=== PATIENT | female | born 1995 | race Caucasian/White ===

== ENCOUNTER 2024-07-05 14:39 | Emergency (ER) | payer MEDICAID, SELFPAY ==
[2024-07-05 14:43] VITALS: BP 116/69; PULSE 88; RESP 18; TEMP 37; O2SAT 97; BMI 26.9
--- NOTE | 2024-07-05 15:51 | ED_ITS ---
HPI - Abdominal Pain General Chief Complaint: Abdominal Pain Stated Complaint: abd pain lightheadness, hard time walking at work Time Seen by Provider: 07/05/24 14:42 History of Present Illness HPI narrative: This 28-year-old female comes in reporting crampy lower abdominal pain related to her menses. She states that she was getting lightheaded at work so she comes in here. She reports that she has some symptoms like this related to her menses in the past. She arrives here with normal vital signs. She states that she does seem to have some increased urinary frequency. She does not think she is . Related Data Home Medications ?Medication ?Instructions ?Recorded ?Confirmed clonidine 0.1 mg/24 hr weekly 1 patch transdermal QWEEK 07/05/24 07/05/24 transdermal patch clonidine HCl 0.1 mg tablet 0.1 mg PO QHS 07/05/24 07/05/24 dextroamphetamine-amphetamine 10 10 mg PO BID 07/05/24 07/05/24 mg tablet (Adderall) hydroxyzine pamoate 50 mg capsule 50 mg PO BID 07/05/24 07/05/24 olanzapine 2.5 mg tablet 2.5 mg PO QHS 07/05/24 07/05/24 Allergies Allergy/AdvReac Type Severity Reaction Status Date / Time gabapentin Allergy Intermediate Verified 07/05/24 14:49 lamotrigine [From Lamictal] Allergy Intermediate Verified 07/05/24 14:49 quetiapine [From Seroquel] Allergy Intermediate Verified 07/05/24 14:49 risperidone Allergy Intermediate Verified 07/05/24 14:49 Review of Systems Status of ROS Reports: 10 or more systems reviewed and unremarkable except as noted in History and below Narrative Constitutional: No fevers, no weight gain or loss. Eyes: No discharge. No vision changes. HENT: No congestion, no sore throat, no ear pain. Cardiovascular: No chest pain, no palpitations. Respiratory: No shortness of breath, no wheezes, no cough. Gastrointestinal: No vomiting, no diarrhea. Lower abdominal pain that is crampy related to menses. Genitourinary: No dysuria, no hematuria. Musculoskeletal: Normal range of motion. Skin: No rashes, no pruritis. Neurological: No dizziness, weakness, sensory change, speech change. Endo/Heme/Allergies: No bruising or bleeding. No polydipsia. Pysch: no suicidality, no anxiety, no insomnia. All other systems reviewed and are negative. PFSH PFS Social History Smoking Status: Never smoker How often do you have a drink containing alcohol: monthly or less How many standard drinks containing alcohol do you have on a typical day: 1 or 2 How often do you have six or more drinks on one occasion: Never AUDIT-C Alcohol total score: 1 Non-prescribed substance use: marijuana (any form) service: No Exam Narrative: Exam Narrative: Constitutional: Well-developed, well-nourished, no acute distress. HEENT: Normocephalic, atraumatic. Neck: Normal range of motion. Nontender. Supple. Heart: Regular. No murmurs. Normal rate. Intact distal pulses. Lungs: Clear to auscultation. No chest discomfort. No wheezes, rhonchi, or rales. Abdomen: Normal bowel sounds. Mild tenderness in the lower abdomen. No rebound tenderness. Genitalia: Deferred. Back: No midline tenderness. Normal range of motion. Extremities: Normal range of motion. No injury. Skin: Intact. No rash. Warm. No erythema or pallor. Neurologic: No altered sensation. No weakness. Alert and oriented. Psychiatric: No suicidality. No anxiety or depression. No insomnia. Nursing notes and vitals signs are reviewed. Const: Vital Signs, click to edit/add: Vital Signs - 24 hr 07/05/24 14:43 Temperature 98.6 F Pulse Rate [Right Pulse Oximeter] 88 Respiratory Rate 18 Blood Pressure [Ri ght Upper Arm] 116/69 Pulse Oximetry 97 Oxygen Delivery Me thod Room Air Course Vital Signs Vital signs: Initial Vital Signs Temperature 98.6 F 07/05/24 14:43 Temperature Source Temporal Artery Scan 07/05/24 14:43 Pulse Rate 88 07/05/24 14:43 Pulse Rhythm Regular 07/05/24 14:43 Pulse Strength 3+ Normal 07/05/24 14:43 Respiratory Rate 18 07/05/24 14:43 Blood Pressure 116/69 07/05/24 14:43 Blood Pressure Mean 84 07/05/24 14:43 Blood Pressure Position Sitting 07/05/24 14:43 Pulse Oximetry 97 07/05/24 14:43 Oxygen Delivery Method Room Air 07/05/24 14:43 Vital Signs Temperature 98.6 F 07/05/24 14:43 Pulse Rate 88 07/05/24 14:43 Respiratory Rate 18 07/05/24 14:43 Blood Pressure 116/69 07/05/24 14:43 Pulse Oximetry 97 07/05/24 14:43 Oxygen Delivery Method Room Air 07/05/24 14:43 Temperature 98.6 F 07/05/24 14:43 Pulse Rate 88 07/05/24 14:43 Respiratory Rate 18 07/05/24 14:43 Blood Pressure 116/69 07/05/24 14:43 Pulse Oximetry 97 07/05/24 14:43 Oxygen Delivery Method Room Air 07/05/24 14:43 Medications Administered Medications: Discontinued Medications Generic Name Dose Route Start Last Admin Trade Name Radha PRN Reason Stop Dose Admin Ketorolac Tromethamine 10 mg 07/05/24 15:53 07/05/24 16:01 Ketorolac 10 Mg Tablet PO 07/05/24 15:54 10 mg ONCE ONE Administration MDM - Abdominal Pain MDM Narrative Medical decision making narrative: This patient comes in because of some lightheadedness episodes that occurred prior to arrival. She did not have loss of consciousness. She is currently menstruating and has associated crampy abdominal pain. She arrives here with normal vital signs and is not reporting any lightheadedness currently. She was able to get up to the restroom without any symptoms. Urinalysis is negative for and infection. I did discuss other lab and imaging options with the patient but seeing that her exam is rather reassuring and vital signs are okay she is satisfied that she is feeling better. I did provide a return to work note. Lab Data Labs: Lab Results 07/05/24 Range/Units 15:25 Urine Color Yellow (Yellow) Urine Appearance Clear (Clear) Urine pH 7.5 (5.0-8.5) Ur Specific [place] 1.015 (1.000-1.030) Urine Protein Negative (Negative) Urine Glucose (UA) Negative (Negative) Urine Ketones Negative (Negative) Urine Blood Trace-intact A (Negative) Urine Nitrite Negative (Negative) Urine Bilirubin Negative (Negative) Urine Urobilinogen 0.2 (0.2-1.0) Ur Leukocyte Esterase Negative (Negative) Urine RBC 0-2 (0-2) Urine WBC 0-2 (0-5) Ur Squamous Epith Cells Moderate A (None-Few) Urine Bacteria None (None) Urine HCG, Qual Negative (Negative) Discharge Plan Discharge Clinical Impression: Episodic lightheadedness Patient Disposition: Home, Self-Care Condition: Improved Additional Instructions: Take plenty of fluids orally and increase diet as tolerated. Use cnbd-sye-[id number] medicines as needed and directed. Follow up with MD return if worsening. Prescriptions: No Action dextroamphetamine-amphetamine [Adderall] 10 mg tablet 10 mg PO BID Rx Instructions: administer doses at least 4-6 hours apart olanzapine 2.5 mg tablet 2.5 mg PO QHS hydroxyzine pamoate 50 mg capsule 50 mg PO BID clonidine 0.1 mg/24 hr patch weekly 1 patch transdermal QWEEK clonidine HCl 0.1 mg tablet 0.1 mg PO QHS Follow Up/Referrals: Provider,Not a Local [Primary Care Provider] - Stand Alone Forms: [employer] Info Instructions
[2024-07-05 16:00] LABS: Appearance Urine Clear (Clear); Bilirubin Urine Negative (Negative); Blood Urine Trace-intact (Negative); Color Urine Yellow (Yellow); Glucose Urine Negative (Negative); Ketones Urine Negative (Negative); Leukocyte Esterase Urine Negative (Negative); Nitrite Urine Negative (Negative); Protein Urine Negative (Negative); Specific Gravity Urine 1.015 (1.000-1.030); Urobilinogen Urine 0.2 (0.2-1.0); pH Urine 7.5 (5.0-8.5)
[2024-07-05] MEDS: KETOROLAC 10 MG TABLET PO (16:01)
[2024-07-05 16:03] LABS: Ur HCG Qualitative* Negative (Negative)
[2024-07-05 16:09] LABS: RBC Urine 0-2 (0-2); Squamous Epithelial Cell Urine Moderate (None-Few); WBC Urine 0-2 (0-5)
--- OUTSIDE RECORDS SUMMARY | 2024-07-05 16:28 | XMS_ITS | Clinical Summary ---
Author Organization [facility] Address [address] [place] [address] Care Team Providers Care Property Handler Name Role Phone Yoselin Francisco RD Unavailable Kehinde Kearns MD Unavailable [phone] [facility] Primary Care Provide r Allergies Active Allergy Reactions Criticality Noted Date Comments Aspartame Headache 01/18/2024 Beef-Derived Products GI Disturbance 01/18/2024 Brassica Oleracea GI Disturbance 01/18/2024 Ambia-Containing Products GI Disturbance High 020 Gabapentin Hives 10/07/2021 Lamotrigine Hives 04/05/2017 Molds & Smuts GI Disturbance 06/30/2021 Quetiapine Hives,Shortness Of Breath High 01/30/2017 Risperidone Hives 04/05/2017 Seasonal Allergies 06/16/2020 Medications Medication Sig Dispensed Refills Start Date End Date Status amphetamine-dextr oamphetamine (ADDERALL) 10 MG tablet Take 10 mg by mouth daily Active amphetamine-dextr oamphetamine (ADDERALL) 5 MG tablet Take 5 mg by mouth daily Active vortioxetine (TRINTELLIX) 5 MG tablet Take 1 tablet (5 mg) by mouth 2 times daily 60 tablet 01/19/2024 Active hydrOXYzine HCl (ATARAX) 50 MG tablet Take 0.5-1 tablets (25-50 mg) by mouth 3 times daily as needed for anxiety 20 tablet 01/19/2024 Active cloNIDine (CATAPRES) 0.1 MG tablet Take 0.1 mg by mouth at bedtime. Active desvenlafaxine (PRISTIQ) 25 MG 24 hr tablet Take 1 tablet (25 mg) by mouth daily for 14 days, THEN 2 tablets (50 mg) daily for 14 days. 42 tablet 06/28/2024 07/26/2024 Active OLANZapine (ZYPREXA) 5 MG tablet Take 0.5-1 tablets (2.5-5 mg) by mouth 2 times daily as needed (instrusive thoughts). 30 tablet 06/28/2024 Active desvenlafaxine (PRISTIQ) 50 MG 24 hr tablet Take 1 tablet (50 mg) by mouth daily 30 tablet 06/19/2023 06/28/2024 Discontinued(D iscontinued by another Health Care Provider (No AVS)) amphetamine-dextr oamphetamine (ADDERALL) 10 MG tablet Take 10 mg by mouth daily 06/28/2024 Discontinued(D uplicate Therapy (No AVS / No eCancel)) amphetamine-dextr oamphetamine (ADDERALL) 5 MG tablet Take 5 mg by mouth daily 06/28/2024 Discontinued(D uplicate Therapy (No AVS / No eCancel)) Active Problems Problem Noted Date Diagnosed Date Generalized anxiety disorder 06/28/2024 Suicidal ideation 01/18/2024 Current severe episode of ma anna depressive disorder without psychotic features without prior episode 01/18/2024 Autism 07/02/2023 Depression with suicidal ideation 06/18/2023 Anxiety 06/18/2023 Posttraumatic stress disorder 06/18/2023 ADHD (attention deficit hyperactivity disorder) 05/29/2023 Suicidal thoughts 09/19/2021 Severe recurrent major depre ssion without psychotic features 09/19/2021 Indication for care in labor or delivery 020 Encounter for triage in patient 020 depression 05/16/2016 Dayami-Danlos syndrome Overview: Hypermobility type Fibromyalgia Resolved Problems Problem Noted Date Diagnosed Date Resolved Date High-risk , third trimester 06/21/2020 10/18/2020 Encounter for triage in patient 04/21/2020 06/21/2020 Ankle joint pain 05/23/2012 07/23/2012 Knee pain 05/23/2012 07/23/2012 Encounters Date Type Department Care Team Description 06/29/2024 Telephone [facility] Services - Behavioral Service Line [address] [place] [address] Jennifer Bach 06/28/2024 4:47 PM CDT - 06/28/2024 9:35 PM CDT Emergency [facility] Emergency Dept [address] [place] [address] Gareth Campos MD Depression with suicidal ideation; Moderate episode of recurrent major depressive disorder (H); Current severe episode of major depressive disorder without psychotic features without prior episode (H) Discharge Disposition: Home or Self Care 06/28/2024 Travel from Last 3 Months Immunizations Name Administration Dates Next Due HIB (PRP-T) 03/18/1997, 6,04/30/1996,1995 HepB, Unspecified 06/30/1996,04/30/1996,02/24/19 96 Hepatitis A Vac Ped/Adol-3 Dose 03/15/2009,06/03 Historical DTP/aP 03/18/2001, 7,06/30/1996,1995,02/25/1996 Hpv, Unspecified 03/27/2011 Influenza (H1N1) 11/26/2009 Influenza Vaccine >6 months,quad, PF 06/21/2020 MMR 03/18/2001,03/18/1997 Meningococcal,unspecified 03/27/2011 Poliovirus, inactivated (IPV) 03/18/2001 ,03/18/1997,06/30/1996,1995,02/25/1996 TD,PF 7+ (Tenivac) 05/28/2019 TDAP Vaccine (Adacel) 07/16/2020 Tdap (Adult) Unspecified Formulation 06/03/2008 Varicella 01/31/2000 Family History * Patient is adopted Relation Status Comments Father Other Mother Other Social History Tobacco Use Types Packs/Day Years Used Date Smoking Tobacco: Former Vaping Device Smokeless Tobacco: Never Tobacco Cessation:Counseling Given: Not Answered Comments:quit when found out Alcohol Use Standard Drinks/Week Comments No 0 (1 standard drink = 0.6 oz pur e alcohol) PHQ-2 Answer Date Recorded PHQ-2 Score 5 07/02/2023 [place] Depression Scale Answer Date Recorded [place] Depression Score 9 09/07/2020 Last EPDS Self Harm Result Not on file 09/07 Adolescent Education Answer Date Record ed Getting School Help Needed Not on file 06/29 Sex and Gender Information Value Date Recorded Sex Assigned at Not on file Gender Identity Not on file Sexual Orientation Not on file Last Filed Vital Signs Vital Sign Reading Time Taken Comments Blood Pressure 124/47 06/28/2024 5:12 PM CDT Pulse 96 06/28/2024 5:12 PM CDT Temperature 36.6 ??C (97.8 ??F) 06/28/2024 4:49 PM CD T Respiratory Rate 16 06/28/2024 5:12 PM CDT Oxygen Saturation 96% 06/28/2024 5:12 PM CDT Inhaled Oxygen Concentration - - Weight 76.2 kg (168 lb) 06/28/2024 4:49 PM CDT Height 175.3 cm (5' 9) 06/28/2024 4:49 PM CDT Body Mass Index 24.81 06/28/2024 4:49 PM CDT Plan of Treatment Health Maintenance Due Date Last Done Comments ADVANCE CARE PLANNING 1995 ANNUAL REVIEW OF HM ORDERS 1995 DEPRESSION ACTION PLAN 1995 YEARLY PREVENTIVE VISIT 1995 HPV IMMUNIZATION (2 - 3-dose series) 04/24/2011 03/27/2011 HEPATITIS C SCREENING 12/19/2013 PAP 05/28/2022 05/28/2019, 05/28/2019 PHQ-9 12/31/2023 07/02/2023, 12/10/2020, 10/18/2020 COVID-19 Vaccine ( season) 2024 04/06/2021, 03/09/2021 INFLUENZA VACCINE (#1) 2024 06/21/2020, 2009 DTAP/TDAP/TD IMMUNIZATION (9 - Td or Tdap) 07/16/2030 07/16/2020, 05/28/2019, 05/28/2019, Additional history exists HEPATITIS B IMMUNIZATION Completed 996, 04/30/1996, 02/25/1996 MENINGITIS IMMUNIZATION Aged Out 03/27/20 11, 03/27/2011, 03/27/2011 No longer eligible based on patient's age to complete this topic HIV SCREENING Completed 03/22/2020 Pneumococcal Vaccine: Pediatrics (0 to 5 Years) and At-Risk Patients (6 to 64 Years) Aged Out No longer eligible based on patient's age to complete this topic RSV MONOCLONAL ANTIBODY Aged Out No l onger eligible based on patient's age to complete this topic Procedures Procedure Name Priority Date/Time Associated Diagnosis Comments ABSTRACT HIV Routine 03/22/2020 ABSTRACT PAP (HIM EXTERNAL RESULT) Routine 05/28/2019 from Last 3 Months or Most Recently Relevant to Health Maintenance Results * ABSTRACT HIV (03/22/2020) HIV 1&2 EXT Non-Reacti ve Non-Reacti ve [facility] Blood specimen (specimen) 03/22/2020 Narrative [facility] - 03/22/2020 LAB RESULT [facility] Provider Outside LAB - HIM EXTERNAL R ESULT [facility] [address] [place] [address], [facility] * ABSTRACT PAP-NO CHARGE (05/28/2019) PAP-ABSTRACT See Scanned Document [facility] 05/28/2019 Narrative [facility] - 05/28/2019 RESULTS FOUND IN CARE EVERYWHERE [facility] Provider Outside LAB - HIM EXTERNAL R ESULT [facility] [address] [place] [address], [place] from Last 3 Months or Most Recently Relevant to Health Maintenance Advance Directives For more information, please contact: [phone] * Full Code (Latest Code Status on File) Date Activated Date Inactivated Comments 09/07/2020 10:07 AM 09/08/2020 6:06 PM All basic a nd advanced life-sustaining interventions are performed as appropriate Question Answer Comments Code status determined by: Discussion with patie nt/ legal decision maker * Full Code Date Activated Date Inactivated Comments 05/16/2016 12:11 PM 05/17/2016 10:56 PM Care Teams Property Handler Relationship Specialty Start Date End Date [address] [place] [address] PCP - General 06/28/[address] [place] [address] Building Services Supervisor Dietitian, Registered 07/29/20 Kehinde Kearns MD [address] [place] [address] [address] [place], [place] [address] Family Medicine 06/20/23 Frances Simmons Therapist 06/18/23 Fidel Barton Therapist 06/28/24 Dajuan Dallas Psychiatrist 06/28/24
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
--- OUTSIDE RECORDS SUMMARY | 2024-07-05 16:29 | XMS_ITS | Encounter Summary ---
Author Organization [facility] Address [address] [place] [address] Care Team Providers Care Library Services Coordinator Name Role Phone Yoselin Francisco RD Unavailable Nanette Kearns DO Primary Care Provider [phone] Kehinde Kearns MD Unavailable [phone] [facility] Primary Care Provide r Encounter Details Date Type Department Care Team (Late st Contact Info) Description 06/19/2023 Telephone [facility] Services - Behavioral Service Line [address] [place] [address] Brandi Cortes Social History Tobacco Use Types Packs/Day Years Used Date Smoking Tobacco: Former Vaping Device Smokeless Tobacco: Never Comments:quit when found out Alcohol Use Standard Drinks/Week Comments No 0 (1 standard drink = 0.6 oz pur e alcohol) PHQ-2 Answer Date Recorded PHQ-2 Score 3 10/18/2020 [place] Depression Scale Answer Date Recorded [place] Depression Score 9 09/07/2020 Last EPDS Self Harm Result Not on file 09/07 Sex and Gender Information Value Date Recorded Sex Assigned at Not on file Gender Identity Not on file Sexual Orientation Not on file COVID-19 Exposure Response Date Recorded In the last 10 days, have yo u been in contact with someone who was confirmed or suspected to have Coronavirus/COVID-19? 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 documented as of this encounter Care Teams Library Services Coordinator Relationship Specialty Start Date End Date Nanette Kearns DO [address] [place] [address] PCP - General Family Practice 06/19/23 06/19/[address] [place] [address] PCP - General 06/28/[address] [place], [place] [address] Order Management Specialist Dietitian, Registered 07/29/20 Kehinde Kearns MD [address] [address] [place] [address] Family Medicine 06/20/23 Frances Simmons Therapist 06/18/23 Fidel Barton Therapist 06/28/24 Dajuan Dallas Psychiatrist 06/28/24 documented as of this encounter
--- OUTSIDE RECORDS SUMMARY | 2024-07-05 16:29 | XMS_ITS | Encounter Summary ---
Author Organization [facility] Address [address] [place] [address] Care Team Providers Care Supervisor Instant Potato Processing Name Role Phone Yoselin Francisco RD Unavailable Kehinde Kearns MD Unavailable [phone] [facility] Primary Care Provide r Encounter Details Date Type Department Care Team (Late st Contact Info) Description 06/29/2024 Telephone [facility] Services - Behavioral Service Line [address] [place] [address] Jennifer Bach Social History Tobacco Use Types Packs/Day Years Used Date Smoking Tobacco: Former Vaping Device Smokeless Tobacco: Never Comments:quit when found out Alcohol Use Standard Drinks/Week Comments No 0 (1 standard drink = 0.6 oz pur e alcohol) PHQ-2 Answer Date Recorded PHQ-2 Score 5 07/02/2023 [place] Depression Scale Answer Date Recorded [place] Depression Score 9 09/07/2020 Last EPDS Self Harm Result Not on file 09/07 Adolescent Education Answer Date Record ed Getting School Help Needed Not on file 06/29 Sex and Gender Information Value Date Recorded Sex Assigned at Not on file Gender Identity Not on file Sexual Orientation Not on file documented as of this encounter Miscellaneous Notes * Telephone Encounter - Jennifer Bach - 06/29/2024 11:16 AM CDTSummary: follow up call LVM for patient regarding follow up, left Em[facility] number if they would like additional assistance. No further follow-up is needed. documented in this encounter Plan of Treatment Not on file documented as of this encounter Visit Diagnoses Not on filedocumented in this encounter Additional Health Concerns Assessment Noted Time PHQ-9 Depression Total Score: 023 2:20 PM CDT documented as of this encounter Care Teams Supervisor Instant Potato Processing Relationship Specialty Start Date End Date [address] [place] [address] PCP - General 06/28/[address] [place], [place] [id number] [facility] Agent Dietitian, Registered 07/29/20 Kehinde Kearns MD [address] [facility] [address] [place], [place] [address] Family Medicine 06/20/23 Frances Simmons Therapist 06/18/23 Fidel Barton Therapist 06/28/24 Dajuan Dallas Psychiatrist 06/28/24 documented as of this encounter
--- OUTSIDE RECORDS SUMMARY | 2024-07-05 16:29 | XMS_ITS | Clinical Summary ---
Author Organization [employer] [facility] Address [place], [place] [address] Care Team Providers Care Hedis Review Nurse Name Role Phone Martina Ureña [facility] Primary Care Prov ider Jules Egan Ac Unavailable [phone] Allergies Active Allergy Reactions Criticality Noted Date Comments Aspartame Headache Unknown 01/18/2024 Beef Derived (Bovine) Nausea Only 01/18/2024 Broccoli Nausea Only Unknown 01/18/2024 [place] GI Upset High 11/29/2018 [place] Containing Products GI Upset,Nausea Only High 11/29/2018 Gabapentin Mental Status Change,*Unknown - Follow up needed,Hives High 05/10/2017 Patient experienced suicidal ideations Gluten Other - Describe In Comment Field Low 10/14/2018 Fibromyalgia flare-up Lamotrigine Hives High 02/26/2017 Mold Nausea Only,GI Upset Unknown 06/30/2021 Unlisted Allergen (Include Detail In Comments) *Unknown Unknown 04/19/2020 Seasonal and mold allergies--sneezing and watery eyes Quetiapine Hives,Shortness Of Breath,Respiratory Distress High 01/30/2017 Risperidone Hives High 02/26/2017 Medications Medication Sig Dispensed Refills Start Date End Date Status methylphenidate HCl 36 mg Extended-Release tablet 03/15/2021 Active clonazePAM (KLONOPIN) 1 mg tablet Take 1 mg by mouth at bedtime. Active cloNIDine HCL (CATAPRES) 0.1 mg tablet Take 0.1 mg by mouth once daily. 04/15/2024 Active desvenlafaxine succinate (PRISTIQ) 50 mg Extended-Release tablet Take 50 mg by mouth once daily. 06/19/2023 Active dextroamphetamine-amp hetamine (ADDERALL) 10 mg tablet Take 10 mg by mouth once daily. Active dextroamphetamine-amp hetamine (ADDERALL) 5 mg tablet Take 5 mg by mouth once daily. Active hydrOXYzine HCL (ATARAX) 50 mg tablet Take 50 mg by mouth 2 times daily if needed. 01/19/2024 Active testosterone (ANDROGEL) 20.25 mg/1.25 gram (1.62 %) glpm transdermal gel 01/11/2024 Acti ve vortioxetine (TRINTELLIX) 10 mg tablet Take 10 mg by mouth once daily. Active homeopathic drugs ([facility] NATURAL PRODUCT OPHT) Take as instructed .. Active dexAMETHasone 4 mg tabletIndications:Cer vical radiculopathy Take 1 Tablet (4 mg) by mouth two times daily with meals. 10 Tablet 05/05/2024 Active Active Problems Problem Noted Date Diagnosed Date Neck pain 01/21/2024 Current severe episode of ma anna depressive disorder without psychotic features without prior episode 01/18/2024 Gender dysphoria 2023 Autistic disorder 07/02/2023 Anxiety 06/18/2023 Depression with suicidal ideation 06/18/2023 PTSD (post-traumatic stress disorder) 06/18/2023 ADHD (attention deficit hyperactivity disorder) 05/29/2023 Severe episode of recurrent major depressive disorder, without psychotic features 09/19/2021 Suicidal ideations 09/19/2021 Attention deficit hyperactiv ity disorder (ADHD), predominantly inattentive type 01/19/2021 Costochondritis 07/07/2020 [facility] Supervision of high-risk 04/16/20 20 Overview (04/19/2020): [facility] CONSULTATION ON 04/19/2020 REASON FOR CONSULT: L2 with management of medications TODAY'S APPOINTMENT: Genetics Consultation & Genetic Counseling PRIMARY DIAGNOSIS: 24 y.o. 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 No follow up Fibromyalgia--all over body pain, concentrated in neck, shoulders, back and migraines. Dx 2018, primary care provider manages PTSD-from childhood AHDH--dx in 2015, was on Adderoll until Anxiety/Depression Migraines Uses [id number] 10 puffs per day--stopped at 10 weeks LAST GROWTH: L2 scheduled on 05/21/2020 04/01/20 CL 3.5 cm Placenta Previa 03/22/2020 12w6d REFERRING PHYSICIAN/PHONE/LAST UPDATE: Dr Sasha Renae [phone] Primary MD approves scheduling of recommended ultrasounds/testing: Yes SPECIALISTS/CONSULTS: Include: Specialty MD Clinic Name Phone# [place] and ADD TO TREATMENT TEAM Family Practice Margarita Carrington [place] 01/15/2020 CARE COORDINATION: GENETICS: declined PROCEDURES: PERTINENT LABS: Labs reviewed? Yes Normal? Yes PERTINENT MEDS: , , , , Magnesium, Vitamin D, PNV Preferred delivery location: [facility] PLAN OF CARE: Supervision of normal first 03/09/2020 Overview (03/10/2020): 24 y.o. Concerns this Spotting Bleeding: Spotting 3-4 weeks ago, light, after intercourse. Blood type unknown. 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 Designated pharmacy: [facility] Prescribing physician: Suellen Flores CNP. Diagnosis: ION Martinez .................... 07/11/2018 10:21 AM Fibromyalgia 07/03/2018 Hypokalemia 01/16/2017 Hypermobile joints 01/06/2017 Bruising 01/06/2017 Hereditary disease in family possibly affecting fetus Vaginal bleeding in , second trimester Resolved Problems Problem Noted Date Diagnosed Date Resolved Date Gastroparesis 05/08/2016 10/15/2018 Overview (01/06/2017): EGD. fasted 16 hours, but still food in stomach. Lifetime stomach with bloating and couldn't swallow (visceral responses). black stool. stool with hard and diarrhea. glutton allergy 08/2017. Attention deficit 01/24/2013 01/06/2017 Encounters Date Type Department Care Team Description 06/17/2024 10:00 AM CDT Procedure Only [facility] [address] [facility] [address] [place] [address] Jules Egan L Ac Acupuncture 06/17/2024 Travel 06/03/2024 9:30 AM CDT Procedure Only [facility] [address] [facility] [address] [place] [address] Jules Egan L Ac Acupuncture 06/03/2024 Travel 05/14/2024 10:54 PM CDT - 05/14/2024 11:39 PM CDT Emergency [facility] [address] [facility] [place] [address] Yassine Rincon DO Contusion of right hand, initial encounter (Primary Dx) Discharge Disposition: Home Self Care 05/14/2024 11:00 AM CDT Procedure Only [facility] [address] [facility] [address] [place] [address] Jules Egan L Ac Acupuncture 05/14/2024 Travel 05/07/2024 1:00 PM CDT Office Visit [facility] [address] [facility] [address] [place] [address] Jules Egan L Ac Acupuncture 05/07/2024 Travel 05/05/2024 8:04 PM CDT - 05/05/2024 8:16 PM CDT Emergency [facility] [address] [place] [address] Kiran Paul PA Cervical radiculopathy (Primary Dx) Discharge Disposition: Home Self Care from Last 3 Months Immunizations Name Administration Dates Next Due COVID-19 vaccine (Moderna 100mcg/0.5mL) PF, MDV 04/06/2021,03/09/2021 DTaP 03/18/2001, 7,06/30/1996,04/30,02/25/1996 Hepatitis A (Peds) 03/15/2009,06/03/2008 Hepatitis B (Peds) 06/30/1996,04/30/1996, 996 Hib Conjugate, Unspecified 03/18/1997,,04/30/1996,02/24 Human Papilloma Virus Vaccine 03/27/2011 Inactivated Polio Vaccine 03/18/2001,08/1997,06/30/1996,04/30,02/25/1996 Influenza A (H1N1), Inactiva barby (Age >=3 Years) 11/26/2009 Influenza, IIV4 06/21/2020 MMR 03/18/2001,03/18/1997 Meningococcal Vaccine 03/27/2011 Polio Virus, Unspecified 03/18/1997,06/09,04/30/1996,02/24 Td (Age >=7 Years) 05/28/2019 Tdap 07/16/2020,06/03/2008 Varicella Vaccine 01/31/2000 Family History * Patient is adopted Medical History Relation Name Comments Other Mother met mother once Relation Name Status Comments Father Other Mother Alive Sister half biological Alive Social History Tobacco Use Types Packs/Day Years Used Date Smoking Tobacco: Never Smokeless Tobacco: Former Tobacco Cessation:Counseling Given: Yes Comments:ECigs- quitting on own Alcohol Use Standard Drinks/Week Comments Not Currently 0 (1 standard drink = 0.6 oz pur e alcohol) Rarely- not with PHQ-2 Answer Date Recorded PHQ-2 TOTAL SCORE 1 03/22/2020 Social Connections Answer Date Recorded Frequency of Communication with Friends and Fami ly Not on file 10/06/2021 Financial Resource Strain Answer Date R ecorded Difficulty of Paying Living Expenses Not on file 10/06/2021 Difficulty of Paying Living Expenses Not on file 10/06/2021 Sex and Gender Information Value Date Recorded Sex Assigned at Not on file Gender Identity Not on file Sexual Orientation Not on file Obstetrics History Para Term AB IAB SAB Ectopic Multiple Livin g Live Births 3 2 2 0 Date Outcome GA Total Labor Labor/2nd/3rd Weight Sex Type Anes PTL Alisa A1 A5 Name Clin 07/2012 SAB 11w 0d Comments:16 years old, no medical care 2017 SAB 5w0 d Last Filed Vital Signs Vital Sign Reading Time Taken Comments Blood Pressure 116/80 05/14/2024 10:24 PM CDT Pulse 90 05/14/2024 10:24 PM CDT Temperature 36.4 ??C (97.5 ??F) 05/14/2024 10:24 PM C DT Respiratory Rate 18 05/14/2024 10:24 PM CDT Oxygen Saturation 97% 05/14/2024 10:24 PM CDT Inhaled Oxygen Concentration - - Weight 76.2 kg (168 lb) 05/14/2024 10:24 PM CDT Height 175.3 cm (5' 9) 05/14/2024 10:24 PM CDT Body Mass Index 24.81 05/14/2024 10:24 PM CDT Plan of Treatment Health Maintenance Due Date Last Done Comments BMI (ht and wt on same day) for age 18+ 03/22/2021 03/22/2020, 05/28/2019, 12/30/2018, Additional history exists Depression screening for age 12+ 03/22/2021 03/22/2020, 12/30/2018, 11/28/2018, Additional history exists Pap test for age 21-65 05/28/2022 05/28/2019 COVID-19 vaccine series (3 - 2024- season) 2024 04/06/2021, 03/09/2021 Influenza for age 9-49 06/08/2024 06/21/2020, 2009 Tetanus booster 07/16/2030 07/16/2020, 0810/2018, 06/03/2008 HIV for age 15-65 Completed 03/22/2020, 05/28/2019 Hepatitis C screening for age 18-79 Completed 03/22/2020, 05/28/2019 Tdap Completed 07/16/2020, 06/03/2008 Pneumococcal series for age 6-64 Aged Out No longer eligible based on patient's age to complete this topic Procedures Procedure Name Priority Date/Time Associated Diagnosis Comments ACUPUNCTURE PLAN OF CARE Routine 05/16/2024 1:26 PM CDT Other chronic pain Chronic neck pain XR HAND 3 VIEWS RIGHT STAT 05/14/2024 10:38 PM CDT ANTI HIV 1/2 Routine 03/22/2020 4:13 PM CDT Supervision of normal first , antepartum ANTI HCV Routine 03/22/2020 4:13 PM CDT Supervision of normal first , antepartum CONSTRUCTION ADMINISTRATOR THIN PREP PAP SCREEN IMAGED Routine 05/28/2019 10:39 AM CDT Cervical cancer screening from Last 3 Months or Most Recently Relevant to Health Maintenance Results * XR HAND 3 VIEWS RIGHT (05/14/2024 10:38 PM CDT) Anatomical Region Laterality Modality HANDS, HAND R Digital Radiogra phy 05/14/2024 11:2 5 PM CDT Narrative 05/14/2024 11:25 PM CDT For Patients: ??As a result of the Century Cures Act, medical imaging exams and procedure reports are released immediately into your electronic medical record. ??You may view this report before your referring provider. ??If you have questions, please contact your health care provider. Indication: Pain. Technique: Right hand 3 views. Comparison: None. Findings: Bones: Alignment is normal. No fractures or bone lesions. ?? Joint spaces: Unremarkable. ?? Soft tissues: Unremarkable. ?? Impression: Unremarkable right hand. Dictated by Walter Brennan MD @ 05/14/2024 11:25:07 PM (Electronically Signed) Procedure Note Walter Brennan MD - 05/14/2024 For Patients: As a result of the Cures Act, medical imagingexams and procedure reports are released immediately into your electronicmedical record. You may view this report before your referring provider.If you have questions, please contact your health care provider. Indication: Pain. Technique: Right hand 3 views. Comparison: None. Findings: Bones: Alignment is normal. No fractures or bone lesions. Joint spaces: Unremarkable. Soft tissues: Unremarkable. Impression: Unremarkable right hand. Dictated by Walter Brennan MD @ 05/14/2024 11:25:07 PM (Electronically Signed) Stf Ed Triage GENERAL IMAGING * ANTI HCV (03/22/2020 4:13 PM CDT) HEPATITIS C ANTIBODY Non-React sawyer Non-React sawyer 03/22/2020 8:39 PM CDT [facility] Comment:Antibodies to HCV no t detected; does not exclude the possibility of exposure to HCV. Blood BLOOD SPECIMEN / Unknown Venipuncture / Unknown 03/22/2020 4:13 PM CDT 03/22/2020 4:14 PM CDT Sasha Renae DO SEND OUTS [facility] [address] [place] [address], * ANTI HIV 1/2 (03/22/2020 4:13 PM CDT) HIV-1/HIV-2 ANTIBODY Non-Reacti ve Non-Reacti ve 03/22/2020 8:37 PM CDT [facility] Comment:HIV-1 p24 and HIV-1/ HIV-2 Ab not detected. Blood BLOOD SPECIMEN / Unknown Venipuncture / Unknown 03/22/2020 4:13 PM CDT 03/22/2020 4:14 PM CDT Sasha Phong Oc DO SEND OUTS [facility] [address] [place] [address], [place] * CONSTRUCTION ADMINISTRATOR THIN PREP PAP SCREEN IMAGED (05/28/2019 10:39 AM CDT) Case Report Gynecologic Cytology Report ? Case: [id number] ? Authorizing Provider: ??Margarita Carrington, Collected: ? 05/28/2019 1039 ? DO ? Ordering Location: ? [facility] ?? Received: ?05/28/2019 1118 ? [facility] ? First Screen: ?Natalie Gao ? Specimen: ?CONSTRUCTION ADMINISTRATOR ThinPrep Vial Screening, Cervical ? 06/06/2019 2:03 PM CDT [facility] INTERPRETATION/ RESULT NEGATIVE FOR INTRAEPITHELIAL LESION OR MALIGNANCY (NIL) (none) 06/06/2019 2:03 PM CDT [facility] NISM(S) Fungal organisms morphologically consistent with Leticia species Shift in kvng suggestive of bacterial vaginosis 06/06/2019 2:03 PM CDT [facility] SPECIMEN ADEQUACY Satisfactory for evaluation Endocervical component present 06/06/2019 2:03 PM CDT [facility] HPV REQUEST HPV if ASCUS 06/06/2019 2:03 PM CDT [facility] Date of LMP 04/30/2019 06/06/2019 2:03 PM CDT [facility] Last Pap Date n/a 06/06/2019 2:03 PM CDT [facility] Last Pap Result First Pap/Unknown 2:03 PM CDT [facility] Abnormal Pap or Jackson Bx in last 5 years No 06/06/2019 2:03 PM CDT [facility] Menstrual Status Irregular Periods 06/06/2019 2:03 PM CDT [facility] Jackson Bx Done Today No 06/06/2019 2:03 PM CDT [facility] Additional Information None given 06/06/2019 2:03 PM CDT [facility] Automated Review Successful 06/06/2019 2:03 PM CDT [facility] Comment:Specimen processed s uccessfully by automated habitat conservation planner device, ThinPrep Imaging System, [employer] Note The pap test is a screening technique, not a diagnostic procedure. ??It is used primarily to screen for squamous cancers and precursor lesions. ??Published studies have shown that it is subject to both false negative and false positive results. ??The pap test should not be used as the sole means to diagnose or exclude pre-malignant and malignant lesions. Cytology is screened and interpreted at [facility] - [address], [place] [address] and [facility] - [address]; [place] [address] and [facility] - [address]; [place] [address] and [facility] [address]; [place] [address] 06/06/2019 2:03 PM CDT [facility] Other (Cervical) Non-Blood / Unknown 05/28/2019 10:39 AM CDT 05/28/2019 11:18 AM CDT Margarita Carrington DO PATHOLOGY/CY [facility] [address] [place] [address], from Last 3 Months or Most Recently Relevant to Health Maintenance Care Teams Hedis Review Nurse Relationship Specialty Start Date End Date Medicine, Martina [facility] [address] [facility] [place] [address] PCP - General Nurse Practitioner - Family 05/05/24 Jules Egan L Ac [address] [facility] [address] [place] [address] Supervisor Accounts Receivable 06/17/24
--- OUTSIDE RECORDS SUMMARY | 2024-07-05 16:29 | XMS_ITS | Encounter Summary ---
Author Organization [place] Address [address] [place] [address] Care Team Providers Care Radioisotope Production Operator Name Role Phone Yoselin Francisco RD Unavailable Kehinde Kearns MD Unavailable [phone] [facility] Primary Care Provide r Encounter Details Date Type Department Care Team (Late st Contact Info) Description 07/16/2023 [facility] [address] [place] [address] [facility] Social History Tobacco Use Types Packs/Day Years Used Date Smoking Tobacco: Former Vaping Device Smokeless Tobacco: Never Comments:quit when found out Alcohol Use Standard Drinks/Week Comments No 0 (1 standard drink = 0.6 oz pur e alcohol) PHQ-2 Answer Date Recorded PHQ-2 Score 5 07/02/2023 [place] Depression Scale Answer Date Recorded [place] Depression Score 9 09/07/2020 Last EPDS Self [...] suspected to have Coronavirus/COVID-19? No / Unsure 07/02/2023 2:04 PM CDT documented as of this encounter Plan of Treatment Not on file documented as of this encounter Visit Diagnoses Not on filedocumented in this encounter Additional Health Concerns Assessment Noted Time PHQ-9 Depression Total Score: 23 07/02/2 023 2:20 PM CDT documented as of this encounter Care Teams Radioisotope Production Operator Relationship Specialty Start Date End Date [address] [place], [place] [address] PCP - General 06/28/[address] [place], [place] [address] Utility Bill Complaints Investigator Dietitian, Registered 07/29/20 Kehinde Kearns MD [address] [address] [place] [address] Family Medicine 06/20/23 Frances Simmons Therapist 06/18/23 Fidel Barton Therapist 06/28/24 Dajuan Dallas Psychiatrist 06/28/24 documented as of this encounter
--- OUTSIDE RECORDS SUMMARY | 2024-07-05 16:29 | XMS_ITS | Encounter Summary ---
Author Organization [place] Address [address] [place] [address]. [place] [address] Care Team Providers Care Quarter Backer Name Role Phone Yoselin Francisco RD Unavailable Nanette Kearns DO Primary Care Provider [phone] Kehinde Kearns MD Unavailable [phone] [facility] Primary Care Provide r Encounter Details Date Type Department Care Team (Late st Contact Info) Description 06/19/2023 Telephone [facility] [address] [place] [address] Nanette Kearns, [address] [place] [address] Social History Tobacco Use Types Packs/Day Years Used Date Smoking Tobacco: Former Vaping Device Smokeless Tobacco: Never Comments:quit when found out Alcohol Use Standard Drinks/Week Comments No 0 (1 standard drink = 0.6 oz pur e alcohol) PHQ-2 Answer Date Recorded PHQ-2 Score 3 10/18/2020 [place] Depression Scale Answer Date Recorded [place] Depression Score 9 09/07/2020 Last EPDS Self [...] Assessment Noted Time PHQ-9 Depression Total Score: 022 7:03 AM CLAY ARTIST documented as of this encounter Care Teams Quarter Backer Relationship Specialty Start Date End Date Nanette Kearns DO [address] [place] [address] PCP - General Family Practice 06/19/23 06/19/[address] [place], [place] [address] PCP - General 06/28/[address] [place] [address] Rigger Supervisor Dietitian, Registered 07/29/20 Kehinde Kearns MD [address] [address] [place] [address] Family Medicine 06/20/23 Frances Simmons Therapist 06/18/23 Fidel Barton Therapist 06/28/24 Dajuan [place] Psychiatrist 06/28/24 documented as of this encounter
--- OUTSIDE RECORDS SUMMARY | 2024-07-05 16:29 | XMS_ITS | Referral Summary ---
Author Organization [facility] Address [address] [place] [id number] Care Team Providers Care Jingle Writer Name Role Phone Yoselin Francisco RD Unavailable Kehinde Kearns MD Unavailable [phone] [facility] Primary Care Provide r Encounters Date Type Department Care Team Description 06/29/2024 Telephone [facility] Services - Behavioral Service Line [address] [place] [address] Jennifer Bach 06/28/2024 Travel 06/28/2024 4:47 PM CDT - 06/28/2024 9:35 PM CDT Emergency [facility] Emergency Dept [address] [place] [id number] Gareth Campos MD Depression with suicidal ideation; Moderate episode of recurrent major depressive disorder (H); Current severe episode of major depressive disorder without psychotic features without prior episode (H) Discharge Disposition: Home or Self Care from Last 3 Months Allergies Active Allergy Reactions Criticality Noted Date Comments Aspartame Headache 01/18/2024 Beef-Derived Products GI Disturbance 01/18/2024 Brassica Oleracea GI Disturbance 01/18/2024 [place]-Containing Products GI Disturbance High 020 Gabapentin Hives [...] pain 05/23/2012 07/23/2012 Knee pain 05/23/2012 07/23/2012 Immunizations Name Administration Dates Next Due HIB (PRP-T) 03/18/1997, 6,04/30/1996,1995 HepB, Unspecified 06/30/1996,04/30/1996,02/24/19 96 Hepatitis A Vac Ped/Adol-3 Dose 03/15/2009,06/03 Historical DTP/aP 03/18/2001, 7,06/30/1996,1995,02/25/1996 Hpv, Unspecified 03/27/2011 Influenza (H1N1) 11/26/2009 Influenza Vaccine >6 months,quad, PF 06/21/2020 MMR 03/18/2001,03/18/1997 Meningococcal,unspecified 03/27/2011 Poliovirus, inactivated (IPV) 03/18/2001 ,03/18/1997,06/30/1996,1995,02/25/1996 [facility] 7+ [facility] 05/28/2019 TDAP Vaccine (Adacel) 07/16/2020 Tdap (Adult) Unspecified Formulation 06/03/2008 Varicella 01/31/2000 Social History Tobacco Use Types Packs/Day Years Used Date Smoking Tobacco: Former Vaping Device Smokeless Tobacco: Never Tobacco Cessation:Counseling Given: Not Answered Comments:quit when found out Alcohol Use Standard Drinks/Week Comments No 0 (1 standard drink = 0.6 oz pur e alcohol) PHQ-2 Answer Date Recorded PHQ-2 Score 5 07/02/2023 [place] Depression Scale Answer Date Recorded [place] Depression Score 9 09/07/2020 Last EPDS Self [...] 06/28/2024 4:49 PM CDT Plan of Treatment Not on file Procedures Procedure Name Priority Date/Time Associated Diagnosis Comments ABSTRACT HIV Routine 03/22/2020 ABSTRACT PAP (HIM EXTERNAL RESULT) Routine 05/28/2019 from Last 3 Months or Most Recently Relevant to Health Maintenance Results * ABSTRACT HIV (03/22/2020) Pathologist [facility] HIV 1&2 EXT Non-Reacti ve Non-Reacti ve [facility] Blood specimen (specimen) 03/22/2020 Narrative [facility] - 03/22/2020 LAB RESULT [facility] Provider Outside LAB - HIM EXTERNAL R ESULT [facility] [address] [place] [address], [place] * ABSTRACT PAP-NO CHARGE (05/28/2019) PAP-ABSTRACT See Scanned Document [facility] 05/28/2019 Narrative [facility] - 05/28/2019 RESULTS FOUND IN CARE EVERY[facility] Provider Outside LAB - HIM EXTERNAL R ESULT [facility] [address] [place] [address], [place] from Last 3 Months or Most Recently Relevant to Health Maintenance Advance Directives For more information, please contact: [phone] * Full Code (Latest Code Status on File) Date Activated Date Inactivated Comments 09/07/2020 10:07 AM 09/08/2020 6:06 PM All basic a nd advanced life-sustaining interventions are performed as appropriate Question Answer Comments Code status determined by: Discussion with patie nt/ legal decision maker * Full Code Date Activated Date Inactivated Comments 05/16/2016 12:11 PM 05/17/2016 10:56 PM Care Teams Jingle Writer Relationship Specialty Start Date End Date [facility] [address] [place] [address] PCP - General 06/28/[address] [place] [address] Manager Strategic Development Dietitian, Registered 07/29/20 Kehinde Kearns MD [address] [place] [address] [address] [place] [address] Family Medicine 06/20/23 Frances Simmons Therapist 06/18/23 Fidel Barton Therapist 06/28/24 Dajuan Dallas Psychiatrist 06/28/24
--- OUTSIDE RECORDS SUMMARY | 2024-07-05 16:29 | XMS_ITS | Encounter Summary ---
Author Organization [facility] Address [address] [place] [address]. [place] [address] Care Team Providers Care Wire Coiler Name Role Phone Yoselin Francisco RD Unavailable Kehinde Kearns MD Unavailable [phone] [facility] Provide r Reason for Referral * Mental Health Outpatient (Routine: Next available opening) - Pending Review Specialty Diagnoses / Procedures Referred By Contac t Referred To Contact Diagnoses Current severe episode of major depressive disorder without psychotic features without prior episode (H) Yeimy Cerda APRN RACEBOOK WRITER [address] [facility] [place] [address] Referral ID Status Reason Start Date Expiration Date V isits Requested Visits Authorized [id number] Pending Review 06/28/2024 06/28/2025 1 1 Question Answer Services: Interventional Psychiatry Evaluate and Treat Difficult to Treat Depression Seeking ECT? Per Specialty Provider Scheduling Instructions: [a]list games [facility] will call you to coordinate your care as prescribed by your provider. If you don't hear from a business process representative within 2 business days, please call [phone]. Only select yes if the patient has already been scheduled and requires a referral for insurance. If yes is selected, the referral will NOT route to scheduling for outreach. No Additional Information: Treatment resistent depression vs PMDD Comments Please be aware that coverage of these services is subject to the terms and limitations of your health insurance plan. Call member services at your health plan with any benefit or coverage questions. [employer] will call you to coordinate your care as prescribed by your provider. If you don't hear from a business process representative within 2 business days, please call [phone]. Reason for Visit * Reason Comments Suicidal Encounter Details Date Type Department Care Team (Late st Contact Info) Description 06/28/2024 4:47 PM CDT - 06/28/2024 9:35 PM CDT Emergency [facility] Emergency Dept [address] [place] [address] Gareth Campos MD [address] [place] [address] Depression with suicidal ideation; Moderate episode of recurrent major depressive disorder (H); Current severe episode of major depressive disorder without psychotic features without prior episode (H) Discharge Disposition: Home or Self Care Social History Tobacco Use Types Packs/Day Years Used Date Smoking Tobacco: Former Vaping Device Smokeless Tobacco: Never Comments:quit when found out Alcohol Use Standard Drinks/Week Comments No 0 (1 standard drink = 0.6 oz pur e alcohol) PHQ-2 Answer Date Recorded PHQ-2 Score 5 07/02/2023 [place] Depression Scale Answer Date Recorded [place] Depression Score 9 09/07/2020 Last EPDS Self Harm Result Not on file 09/07 Adolescent Education Answer Date Record ed Getting School Help Needed Not on file 06/29 Sex and Gender Information Value Date Recorded Sex Assigned at Not on file Gender Identity Not on file Sexual Orientation Not on file documented as of this encounter Last Filed Vital Signs Vital Sign Reading [...] Mass Index 24.81 06/28/2024 4:49 PM CDT documented in this encounter Discharge Instructions * Discharge Instructions* Yeimy Cerda APRN CNP - 06/28/2024 9:10 PM CDT Referral made for the [facility]. You may also consider reaching out to this clinic directly: [email or web address] who may have sooner availability. documented in this encounter Medications at Time of Discharge Medication Sig Dispensed Refills Start Date End Date amphetamine-dextroamphe tamine (ADDERALL) 10 MG tablet Take 10 mg by mouth daily amphetamine-dextroamphe tamine (ADDERALL) 5 MG tablet Take 5 mg by mouth daily cloNIDine (CATAPRES) 0.1 MG tablet Take 0.1 mg by mouth at bedtime. desvenlafaxine (PRISTIQ) 25 MG 24 hr tablet Take 1 tablet (25 mg) by mouth daily for 14 days, THEN 2 tablets (50 mg) daily for 14 days. 42 tablet 06/28/2024 07/26/2024 hydrOXYzine HCl (ATARAX) 50 MG tablet Take 0.5-1 tablets (25-50 mg) by mouth 3 times daily as needed for anxiety 20 tablet 01/19/2024 OLANZapine (ZYPREXA) 5 MG tablet Take 0.5-1 tablets (2.5-5 mg) by mouth 2 times daily as needed (instrusive thoughts). 30 tablet 06/28/2024 vortioxetine (TRINTELLIX) 5 MG tablet Take 1 tablet (5 mg) by mouth 2 times daily 60 tablet 01/19/2024 documented as of this encounter Consult Notes * Monalisa Ji LICSW - 06/28/2024 9:11 PM CDTAssociated Order(s): DIAGNOSTIC EVALUATION CENTER (DEC) ASSESSMENT ORDER Diagnostic Evaluation Consultation Crisis Assessment Patient Name: Lorena Martinez Age: [age] year old Legal Sex: female Gender Identity: female Pronouns: they/them/theirs Race: White Ethnicity: Not or Language: Ukrainian Patient was assessed: In person Crisis Assessment Start Date: 06/28/24 Crisis Assessment Start Time: 1839 Crisis Assessment Stop Time: 1909 Patient location: [facility] EMERGENCY DEPT [id number] Referral Data and Chief Complaint Lorena Martinez presents to the ED with family/friends. Patient is presenting to the ED for the following concerns: Anxiety, Depression, Suicidal ideation. Factors that make the mental health crisis life threatening or complex are: Pt presents to the ED with increased depression and suicidal ideation in the context of multiple psychosocial stressors. Pt rents from their parents and lives with their partner and 4-year-old child. Pt recently learned that their home has an unstable foundation and black mold. Their parents (despite owning the property) have been hesitant to provide assistance with the repairs. Pt's mother has also been making comments about praying the trans or bunch out of them. 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 They are studying data analytics and have about 2 years of school left. Pt is also in the process of tapering off of their Mariah tellix due to increased nausea and vomiting. The timeline of their intensified psychiatric symptomscoincides with their increased nausea/vomiting about 1.5-2 weeks ago. They have been experiencing really intense suicidal thoughts over the past 2 days of wanting or needing to be as well as of crashing their car. They deny a specific plan or intent for suicide, identifying their child as a strong protective factor against suicide. However, they have been concerned about the intensifying nature of these thoughts and not being able to see their psychiatric soon enough to start a new medication. They also endorse increased hopelessness, panic attacks with accompanying disassociation, andflashbacks. They have been having episodes 1-2x/day where they cry, scream, go non-verbal, lay in the position, throw objects, or slam doors. Pt feels disassociative during these episodes. Pt reports poor appetite at baseline and has recently not been feeling rested despite sleeping 6.5-8.5 hours/night. Pt endorses daily marijuana use as an appetite stimulant. They deny other YOVANI or HI.. Informed Consent and Assessment Methods Explained the crisis assessment process, including applicable information disclosures and limits toconfidentiality, assessed understanding of the process, and obtained consent to proceed with the assessment. Assessment methods included conducting a formal interview with patient, review of medical records, collaboration with medical staff, and obtaining relevant collateral information from familyand community providers when available. : done Patient response to interventions: acceptance expressed, verbalizes understanding Coping skills were attempted to reduce the crisis: Pt has been accessing support from their partner. History of the Crisis Pt carries diagnoses of TOY, MDD, ADHD by history, and ASD by history. They were last seen at [facility] for suicidal ideation in January 2024. Pt reports having an established therapist and psychiatrist. They are also engaging in a DBT group on a weekly basis. Brief Psychosocial History Family: Domestic Partnership, Children yes (Pt has a 4-year-old child.) Support System: Partner Employment Status: employed full-time (Pt works in a [employer] Source of Income: salary/wages Financial Environmental Concerns: other (see comments) (financial strain) Current Hobbies: arts/crafts, reading Barriers in Personal Life: mental health concerns, emotional concerns Significant Clinical History Current Anxiety Symptoms: racing thoughts, excessive worry, shortness of breath or racing heart, anxious, panic attack Current Depression/Trauma: sense of doom, negativistic, crying or feels like crying, low self esteem, irritable, helplessness, hopelessness, sadness, thoughts of /suicide Current Somatic Symptoms: racing thoughts, excessive worry, shortness of breath or racing heart, anxious Current Psychosis/Thought Disturbance: Current Eating Symptoms: loss of appetite Chemical Use History: Alcohol: None Benzodiazepines: None Opiates: None Cocaine: None Marijuana: Daily (medical marijuana to stimulate appetite) Last Use:: 06/28/24 Other Use: None Past diagnosis: Anxiety Disorder, Depression, PTSD, Autism, ADHD Family history: Anxiety Disorder, Depression, Autism Past treatment: Individual therapy, Psychiatric Medication Management, Inpatient Hospitalization, Primary Care, Day Treatment Details of most recent treatment: Pt has an established therapist and psychiatrist. They are also participating in a DBT group on a weekly basis. Other relevant history: No other relevant history. Collateral Information Is there collateral information: Yes Collateral information name, relationship, phone number: Krissy Ramos, partner, PH: What happened today: Pt has been experiencing increased depressive symptoms. Their medications do not seem to be benefiting them. What is different about patient's functioning: Pt has been experiencing increased panic attacks. They have been more agitated, slamming doors and tossing objects. Krissy's concerns increased yesterdaywhen pt was running late for work. They started aggressively driving yesterday with pt's child in the car. Last night, pt was driving sporadically with their partner in the car with them. Pt has beenexperiencing multiple psychosocial stressors recently, which has certainly been weighing on their mental health. Krissy has never seen pt's mental health concerns be this significant. Pt was considering going to [facility] yesterday but was weighing this with the cost of missing work. Pt reported eitheryesterday or today thoughts of wanting to jump off of a bridge. They have also been reporting thoughts of wanting to drive on the opposite of the road or swerve into incoming traffic. They have been having difficulty eating enough food for their psychiatric medications to take effect. They have been having difficulty falling and staying asleep. Pt uses medical cannabis. No other YOVANI concerns. No HI. Concern about alcohol/drug use: No YOVANI concerns. What do you think the patient needs: Pt needs more beneficial medications. Has patient made comments about wanting to kill themselves/others: yes If d/c is recommended, can they take part in safety/aftercare planning: yes Additional collateral information: No additional collateral information. Risk Assessment [place] Suicide Severity Rating Scale Recent: 06/28/24 Suicidal Ideation (Recent) Q1 Wished to be (Past Month): yes Q2 Suicidal Thoughts (Past Month): yes Q3 Suicidal Thought Method: no Q4 Suicidal Intent without Specific Plan: no Q5 Suicide Intent with Specific Plan: no If yes to Q6, within past 3 months?: no Level of Risk per Screen: moderate risk Intensity of Ideation (Recent) Most Severe Ideation Rating (Past 1 Month): 2 Frequency (Past 1 Month): Many times each day Duration (Past 1 Month): More than 8 hours/persistent or continuous Controllability (Past 1 Month): Unable to control thoughts Deterrents (Past 1 Month): Deterrents definitely stopped you from attempting suicide Reasons for Ideation (Past 1 Month): Completely to end or stop the pain (You couldn't go on living with the pain or how you were feeling) Suicidal Behavior (Recent) Actual Attempt (Past 3 Months): No Total Number of Actual Attempts (Past 3 Months): 0 Has subject engaged in non-suicidal self-injurious behavior? (Past 3 Months): No Interrupted Attempts (Past 3 Months): No Total Number of Interrupted Attempts (Past 3 Months): 0 Aborted or Self-Interrupted Attempt (Past 3 Months): No Total Number of Aborted or Self-Interrupted Attempts (Past 3 Months): 0 Preparatory Acts or Behavior (Past 3 Months): No Total Number of Preparatory Acts (Past 3 Months): 0 Environmental or Psychosocial Events: challenging interpersonal relationships, helplessness/hopelessness, excessive debt, poor finances Protective Factors: Protective Factors: strong read to family unit, community support, or employment, intact marriage or domestic partnership, responsibilities and duties to others, including pets and children, good treatment engagement, supportive ongoing medical and mental health care relationships, help seeking, optimistic outlook - identification of future goals, able to access care without barriers Does the patient have thoughts of harming others? Feels Like Hurting Others: no Previous Attempt to Hurt Others: no Is the patient engaging in sexually inappropriate behavior?: no Is the patient engaging in sexually inappropriate behavior? no Mental Status Exam Affect: Appropriate Appearance: Appropriate Attention Span/Concentration: Attentive Eye Contact: Engaged Fund of Knowledge: Appropriate Language /Speech Content: Fluent Language /Speech Volume: Normal Language /Speech Rate/Productions: Normal Recent Memory: Intact Remote Memory: Intact Mood: Anxious, Sad, Depressed Orientation to Person: Yes Orientation to Place: Yes Orientation to Time of Day: Yes Orientation to Date: Yes Situation (Do they understand why they are here?): Yes Psychomotor Behavior: Normal Thought Content: Suicidal Thought Form: Intact Medication Psychotropic medications: Medication Orders - Psychiatric (From admission, onward) Start Dose/Rate Route Frequency Ordered Stop 06/28/24 1849 hydrOXYzine HCl (ATARAX) tablet 25 mg Placed in Or Linked Group 25 mg Oral EVERY 6 HOURS PRN 06/28/24 18506/28/24 184 hydrOXYzine HCl (ATARAX) tablet 50 mg Placed in Or Linked Group 50 mg Oral EVERY 6 HOURS PRN 06/28/24 18506/28/24 0000 desvenlafaxine (PRISTIQ) 25 MG 24 hr tablet Oral Daily 06/28/24210307/26/24 2359 06/28/24 0000 OLANZapine (ZYPREXA) 5 MG tablet 2.5-5 mg Oral 2 TIMES DAILY PRN 06/28/242103 Current Care Team Patient Care Team: [facility] as PCP - Yoselin Magana RD as Electronic Warfare Linguist (Dietitian, Registered) Frances Simmons as Therapist Kehinde Kearns MD as MD (Family Medicine) Fidel Barton as Therapist Dajuan Dallas as Psychiatrist Diagnosis Patient Active Problem List Diagnosis Code depression 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 Fibromyalgia M79.7 Encounter for triage in patient Z36.89 Indication for care in labor or delivery O75.9 Suicidal thoughts R45.851 Severe recurrent major depression without psychotic features (H) F33.2 ADHD (attention deficit hyperactivity disorder) F90.9 Depression with suicidal ideation F32.A, R45.851 Anxiety F41.9 Posttraumatic stress disorder F43.10 Autism F84.0 Suicidal ideation R45.851 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 Although pt endorses a recent increase in suicidal thoughts, they deny a specific plan for suicide or intent. They clearly state thatthey do not want to . They identify their child as a strong protective factor against suicide and are proactively seeking help for their increased suicidal thoughts. Pt is requesting to discharge home today and will discharge to their partner's care. Patient coping skills attempted to reduce the crisis: Pt has been accessing support from their partner. Disposition Recommended disposition: Individual Therapy, Medication Management, Programmatic Care Reviewed case and recommendations with attending provider. Attending Name: Yeimy Cerda Attending concurs with disposition: yes Patient and/or validated legal guardian concurs with disposition: yes Final disposition: discharge Legal status on admission: Voluntary/Patient has signed consent for treatment Assessment Details Total duration spent with the patient: 30 min CPT code(s) utilized: 41223 - Psychotherapy for Crisis - 60 (30-74*) min ZACARIAS Del Castillo, Psychotherapist DEC - Triage & Transition Services Callback: [phone] documented in this encounter ED Notes * Eula Herrera RN - 06/28/2024 9:36 PM CDT Patient agreeable to discharge plan. Discharge instructions reviewed with patient including follow-up care plan. Medications: Zyprexa and Pristiq sent to patient's pharmacy. Reviewed safety plan and outpatient resources. Denies SI and HI. All belongings that were brought into the hospital have beenreturned to patient. Escorted off the unit at 2135 accompanied by [facility] staff. Discharged to home via partner. * Eula Herrera RN - 06/28/2024 6:57 PM CDT [facility] meeting with [facility]. * Eula Herrera RN - 06/28/2024 6:35 PM CDT 28 year old female that uses they/them pronoun with history of depression, ADHD, PTSD, and anxiety received from ED due to wrosening depression with SI. Reports worsening intrusive thoughts about dying over the last two weeks. States that they has thought about crashing their car while with other passengers in it as well. Identifies stressors as recently finding of mold in their house, financial struggles, new job, and is currently in school. Denies active SI and intent at this time. Denies HI and hallucinations. Daily marijuana use - but states this is prescribed. Patient has been tapering down on their Trintillex from 10 mg to mg over the last two weeks. Patient states that their symptomsstarted to worsen during this time. Hx of suicide attempt in the past. Patient is seeking medication change. They talked about starting Vibryd outpatient, but patient could not wait until next psychiatry appointment due to severity of symptoms. Nursing and risk assessments completed. Assessments reviewed with [facility] and physician. Admission information reviewed with patient. Patient given a tour of [facility] and instructions on using the facility. Questions regarding [facility] addressed. Pt safety search completed. * Fletcher Hampton RN - 06/28/2024 4:57 PM CDT [facility] ED to [facility] Checklist: Goal for [facility]: Suicidality, Medication management, Referral and resources, and Time to stabilize Current Behavior: Calm and Cooperative Safety Concerns: Suicidal, no plan Legal Hold Status: Voluntary Medically Cleared by ED provider: Yes Patient Therapeutically Searched: Not searched - Currently in triage Belongings: Remain with patient Independent Ambulation at Baseline: Yes/No: Yes Participates in Care/Conversation: Yes/No: Yes Patient Informed about [facility]: Yes/No: Yes DEC: Ordered and pending Patient Ready to be Transferred to [facility]? Yes/No: Yes * Fletcher Hampton RN - 06/28/2024 4:51 PM CDT Images from the original note were not included. Pt reports increased SI thoughts w/o plan. Pt states that she doesn't feel like her medications arekeeping the thoughts out. Pt notes that she has been thinking of driving her vehicle into something. Pt notes that this is normal and is able to handle it. Pt states over the past two days she has now been having these thoughts while her partner is in the car. Pt also notes recently having black mold in her house. Which has been a new stressor. Triage Assessment (Adult) Row Name 06/28/24 2234 Triage Assessment Airway WDL WDL Respiratory WDL Respiratory WDL WDL Skin Circulation/Temperature WDL Skin Circulation/Temperature WDL WDL Cardiac WDL Cardiac WDL WDL Peripheral/Neurovascular WDL Peripheral Neurovascular WDL WDL Cognitive/Neuro/Behavioral WDL Cognitive/Neuro/Behavioral WDL X JUARES * Gareth Campos MD - 06/28/2024 4:51 PM CDT Emergency Department Note History of Present Illness Chief Complaint Suicidal HPI Lorena Martinez is a 28 year old patient with a history of anxiety, depression, ADHD, PTSD, and suicidal ideation who presents for evaluation of suicidal ideation. The patient has a history of 1 prior suicide attempt in college by overdose. They have been admitted to the [facility] unit in the past. They take Trintellix for anxiety but says the insurance company would not approve a higher dose. They are on 5 mg a day but this is not controlling anxiety symptoms. There is still intrusive suicidal thoughts of the been worse in the last 24 hours. For instance the patient contemplated swerving the car off the road. The patient did not make any actual attempts to self-harm. Review of External Notes Psychiatry notes reviewed from January 18, 2024 and the patient was admitted to [facility]. Past Medical History Medical History and Problem List Anxiety Depression Dayami danlos syndromes Fibromyalgia depression Suicidal ideation ADHD PTSD Autism Medications Adderall Desvenlafaxine Hydroxyzine Vortioxetine Surgical History Appendectomy Physical Exam Patient Vitals for the past 24 hrs: BP Temp Temp src Pulse Resp SpO2 Height Weight 06/28/24 1649 119/68 97.8 ??F (36.6 ??C) Temporal 100 20 100 % 1.753 m (5' 9) 76.2 kg (168 lb) Physical Exam Constitutional: General: Lorena is not in acute distress. Appearance: Normal appearance. Lorena is not diaphoretic. HENT: Head: Atraumatic. Mouth/Throat: Mouth: Mucous membranes are moist. Eyes: General: No scleral icterus. Conjunctiva/sclera: Conjunctivae normal. Cardiovascular: Rate and Rhythm: Normal rate and regular rhythm. Heart sounds: Normal heart sounds. Pulmonary: Effort: No respiratory distress. Breath sounds: Normal breath sounds. Abdominal: General: Abdomen is flat. There is no distension. Musculoskeletal: Cervical back: Neck supple. Skin: General: Skin is warm. Findings: No rash. Neurological: Mental Status: Lorena is alert. Psychiatric: Comments: Pleasant and cooperative. Medical Decision Making / Diagnosis MDM Lorena Martinez is a 28 year old patient with suicidal thoughts. The patient suffers from depression and anxiety and feels that the symptoms are not well- controlled. There is been an increase in intrusive suicidal thoughts although no actual attempt at self-harm recently. The patient is appropriatefor [facility]. Disposition The patient was transferred to [facility]. Diagnosis ICD-10-CM 1. Depression with suicidal ideation F32.A R45.851 Scribe Disclosure: I, Nanette Le, am serving as a scribe at 4:52 PM on 06/28/2024 to document services personally performed by Gareth Campos MD based on my observations and the provider's statements to me. 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 If the 25 mg dose is ineffective, increase to the 50 mg dose at the next administration time and maintain further doses at 50 mg. If the 50 mg dose is ineffective, contact the provider. hydrOXYzine HCl (ATARAX) tablet 50 mg 50 mg, Oral, EVERY 6 HOURS PRN, other, adjuvant pain, Starting on 06/28/24 at 1849, Start with 25 mg for the initial dose. If the 25 mg dose is ineffective, increase to the 50 mg dose at the next administration time and maintain further doses at 50 mg. If the 50 mg dose is ineffective, contact the provider. $Given 06/28/2024 7:19 PM CDT 50 mg ibuprofen (ADVIL/MOTRIN) tablet 600 mg 600 mg, Oral, EVERY 6 HOURS PRN, inflammatory pain, Starting on 06/28/24 at 1849, Give with food. $Given 06/28/2024 7:19 PM CDT 600 mg documented in this encounter Active and Recently Administered Medications Times are shown in CDT. PRN Medication Order 06/26/2024 06/27/2024 06/28/2024 hydrOXYzine HCl (ATARAX) tablet 25 mg(Linked Group 1) 25 mg, Oral, EVERY 6 HOURS PRN, other, adjuvant pain, Starting on 06/28/24 at 1849, Start with 25 mg for the initial dose. If the 25 mg dose is ineffective, increase to the 50 mg dose at the next administration time and maintain further doses at 50 mg. If the 50 mg dose is ineffective, contact the provider. 1918 (See Alternativ e - Provider: Eula Herrera RN) hydrOXYzine HCl (ATARAX) tablet 50 mg(Linked Group 1) 50 mg, Oral, EVERY 6 HOURS PRN, other, adjuvant pain, Starting on 06/28/24 at 1849, Start with 25 mg for the initial dose. If the 25 mg dose is ineffective, increase to the 50 mg dose at the next administration time and maintain further doses at 50 mg. If the 50 mg dose is ineffective, contact the provider. 1918 ($Given - Provi licha: Eula Herrera RN) ibuprofen (ADVIL/MOTRIN) tablet 600 mg 600 mg, Oral, EVERY 6 HOURS PRN, inflammatory pain, Starting on 06/28/24 at 1849, Give with food. 1918 ($Given - Provi licha: Eula Herrera RN) Linked Groups Order Group 1: hydrOXYzine HCl (ATARAX) tablet 25 mgJump to med 25 mg, Oral, EVERY 6 HOURS PRN, other, adjuvant pain, Starting on 06/28/24 at 1849, Start with 25 mg for the initial dose. If the 25 mg dose is ineffective, increase to the 50 mg dose at the next administration time and maintain further doses at 50 mg. If the 50 mg dose is ineffective, contact the provider. Or hydrOXYzine HCl (ATARAX) tablet 50 mgJump to med 50 mg, Oral, EVERY 6 HOURS PRN, other, adjuvant pain, Starting on 06/28/24 at 1849, Start with 25 mg for the initial dose. If the 25 mg dose is ineffective, increase to the 50 mg dose at the next administration time and maintain further doses at 50 mg. If the 50 mg dose is ineffective, contact the provider. documented in this encounter Additional Health Concerns Assessment Noted Time PHQ-9 Depression Total Score: 023 2:20 PM CDT documented as of this encounter Care Teams Wire Coiler Relationship Specialty Start Date End Date [address] [place] [address] PCP - General 06/28/[address] [place], [place] [id number] Electronic Warfare Linguist Dietitian, Registered 07/29/20 Kehinde Kearns MD [address] [place] [address] [address] [place] [address] Family Medicine 06/20/23 Frances Simmons Therapist 06/18/23 Fidel Barton Therapist 06/28/24 Dajuan Dallas Psychiatrist 06/28/24 documented as of this encounter
--- OUTSIDE RECORDS SUMMARY | 2024-07-05 16:29 | XMS_ITS | Continuity of Care Document ---
Author Organization [facility] Address [address] [address] [place] [address] Phone Care Team Providers Care Brazing Machine Operator Helper Name Role Phone Dariana Berry MD Unavailable Unavailable Allergies, Adverse Reactions, Alerts Substance Reaction Status Criticality QUETIAPINE FUMARATE HivesHivesShortness of breathe Act sawyer No Information risperidone HivesHivesShortness of breathe Active No Information lamotrigine HivesHives Active No Information gabapentin Active No Information Medications Medication Instructions Dosage Effective Dates (start - stop) Status Comments ondansetron 4 mg disintegrating tablet take 1 Tablet by oral route every day PRN 4 MG - Active dicyclomine 20 mg tablet take 1 tablet by oral route 1 - 3 times every day as needed - Active CYCLOBENZAPRINE HCL (unknown strength) take 1 tablet by ORAL route every day as needed Not Available - Active rizatriptan 5 mg tablet take 1 tablet by oral route once, may repeat at 2 hour intervals; do not exceed 30 mg in 24 hours as needed - Active Procedures Procedure Date Offic/outpt E&m Estab Mod-hi 2 19 Colonoscopy Flex; Dx (sep Pro) 19 Ugi Endo; W/bx 1/mx Level Iv-surg Path Gross/micro 19 Breath Test Glucose Stool Kits Given Stool Kits Given Offic/outpt E&m New Mod-hi Routine Serum Collection Ugi Endo; W/bx 1/mx Level Iv-surg Path Gross/micro 16 Offic/outpt E&m [facility] Advance Directives Directive Yes / No Effective Date File Name No Information Encounters Encounter Description Practice Location Reason(s) For Visit Diagnoses Date Provider Providers Copied on Encounter [facility], [address] [address], [place], [id number], [place] tel:[phone] [facility] No Information 9 Jamal [address]brook. [address] [facility], [facility] [address], [place], [id number], [place]. tel:[phone] Offic/outpt E&m [facility] 2 [facility], [address] [address], [place], [id number], [place] tel:[phone] [facility] GI Symptoms or Concerns (chief complaint) Dysphagia, unspecified typeWeight lossEhlers-Danl os syndrome type IIIFibromyalgia 9 Jamal Westbrook. [address] [facility], [address], [id number], [place]. tel:[phone] Referring Provider: Referral Self, USE FOR SELF REFERRALS. [facility], [address] [address], [place], [id number], [place] tel:[phone] [facility] Generalized abdominal painAbnormal weight lossGeneralized abdominal painAbdominal distension (gaseous)Abnorm al weight lossGeneralized abdominal pain 9 Milena Keene. [address] [facility], [address], [id number], [place]. tel:[phone] Referring Provider: Referral Self, USE FOR SELF REFERRALS. [facility], [address] [address], [place], [id number], [place] tel:[phone] [facility] Gastroparesis 9 [place] Haque. [address] [facility], [address], [id number], [place]. tel:[phone] [facility], [address] [address], [place], [id number], [place] tel:[phone] [facility] Hematochezia 9 [place] PLANT ACCOUNTANT Shabnam. [address], [id number], [place]. tel:[phone] [facility], [address] [address], [place] [place], [id number], [place] tel:[phone] [facility] Abdominal distension (gaseous)Weight lossGeneralized abdominal pain 9 [place] PLANT ACCOUNTANT Shabnam. [address], [id number], [place]. tel:[phone] [facility], [address] [address], [place] [facility] [place], [id number], [place] tel:[phone] [facility] No Information 8 [place] PLANT ACCOUNTANT Shabnam. [address], [id number], [place]. tel:[phone] [facility], [address] [address], [place], [place], [id number], [place] tel:[phone] [facility] Gastroparesis 8 [place] PLANT ACCOUNTANT Shabnam. [address], [id number], [place]. tel:[phone] Referring Provider: Referral Self, USE FOR SELF REFERRALS. Offic/outpt E&m New Mod-hi [facility], [address] [address], [place] [facility] [place], [id number], [place] tel:[phone] [facility] GI Symptoms or Concerns (chief complaint) Gastroparesis 8 [place] PLANT ACCOUNTANT Shabnam. [address], [id number], [place]. tel:[phone] Referring Provider: Referral Self, USE FOR SELF REFERRALS. [facility], [address] [address], [place], [id number], [place] tel:[phone] [facility] Dysphagia, pharyngoesophag eal phaseAllergic and dietetic gastroenteritis and colitisAbdomina l distension (gaseous)Gastro paresisDysphagi a, unspecifiedDysp hagia, unspecifiedGast roparesisAbdomi nal distension (gaseous) 6 Nba Buckley. [address], [id number], [place]. tel:[phone] Referring Provider: Referral Self, USE FOR SELF REFERRALS. Offic/outpt E&m New Mod-hi [facility], [address] [address], [place], [place], [id number], [place] tel:[phone] [facility] GI Symptoms or Concerns (chief complaint) BloatPharyngoes ophageal dysphagiaGastro intestinal food sensitivity 6 Nba Buckley. [address] [place] [address], [id number], [place]. tel:[phone] Referring Provider: Claire Perez MD S, [address], [address] . tel:[phone] Family History Family Member Type Diagnosis Age At Onset Problem (finding) Payers Payer name Insurance type Covered constitution party ID Anamaria butler(s) [facility] [id number] Social History Type Description Quantity Date Captured Comments Alcohol Use Details Unknown Caffeine Use Details Unknown Tobacco Use Status No Information Smoking Status No Information Sex Female Chief Complaint And Reason For Visit No Information Reason For Referral Reason For Referral No Information Plan Of Treatment Date Type Action Status Referral Ordered: Video Swallow With Speech Pathologist/Occupational Therapist Appointment date/timeframe: 12/26/2018 ordered Referral Ordered: Xray Esophagus (Barium Swallow Study) Appointment date/timeframe: 12/26/2018 ordered Referral Ordered: Colonoscopy Appointment date/timeframe: 10/30/2018 ordered Referral Ordered: Ultrasound Gallbladder Appointment date/timeframe: 10/02/2018 ordered Referral Ordered: Gastric Emptying Study (4 Hours) Appointment date/timeframe: 10/02/2018 ordered Referral Ordered: referred to Mushroom Laborer gastroparesis and bloating 2 Weeks Appointment date/timeframe: 14 Days ordered History Of Present Illness Encounter Date Complaint History Of Prese nt Illness GI Symptoms or Concerns This is a 22-year-old femal, who comes into the [facility] today for further evaluation of difficulty with eating and difficulty maintaining adequate caloric intake.The patient was diagnosed with fibromyalgia and Dayami-Danlos syndrome type 3 approximately 6 months ago. This included a visit to [facility]. She is currently on short term disability. She is complaining of feeling as if her esophagus feels very full. She can only tolerate eating a very small amount of food before she senses this significant discomfort. She will remain hungry, but cannot swallow adequately to satisfy her hunger. Liquids do not seem to be a problem. She is denying any early satiety in the upper abdominal area.The patient has a diminished appetite, but it is unclear if that is a primary or secondary phenomenon.The patient had upper endoscopy last month. This demonstrated a normal esophagus. There was no stricture or other abnormalities. Duodenal biopsies and gastric biopsies were normal.The patient has lost approximately 20 pounds over the last several months, of which 10 of those pounds have been lost over the last 2 months. However, recently, she started a nutritional drink called Soylent. This is a high protein drink that is providing a good amount of calories for her. She is drinking 2 cans daily and has gained 2 pounds over the past week.The patient had an evaluation in our GI Clinic recently. She had a normal abdominal ultrasound as well as an unremarkable CT scan of the abdomen/pelvis. Left sided colonic diverticulosis and post-appendectomy status was seen. A gastric emptying study was totally normal.For a quite period of time, the patient had been under the supposition that she had gastroparesis, but the gastric emptying study has reassured her that her stomach is working normally. The patient has a history of anxiety, depression, Dayami-Danlos syndrome type 3, fibromyalgia, migraine headaches. and PTSD.Home medications include cyclobenzaprine and rizatriptan, both of which are quite new, dicyclomine 20 mg tablet, 1 to 3 times per day and, frequently, she will take an ondansetron 4 mg tablet. GI Symptoms or Concerns This is a pleasant 22-year-old female with a history of Dayami-Danlos syndrome, probable gastroparesis, and fibromyalgia who is seen today with nausea, weight loss, and abdominal pain.The patient was last seen in our clinic in 2015 with complaints of difficulty eating certain foods, altered bowel habits, bloating, and dysphagia.She underwent an upper endoscopy on 06/13/2016 which demonstrated a normal-appearing esophagus, and a 200 mL amount of partially digested food in the stomach, highly suggestive of gastroparesis. The procedure was terminated prematurely due to the food in her stomach. Esophageal biopsies were normal. She was referred to me with a dietitian, and has not been seen in followup until now.Over the last couple of years, she has met with several dietitians and has made some dramatic dietary changes. She has eliminated gluten from her diet around the time that she was diagnosed with gastroparesis. Approximately 1 year ago, she began to become horri GI Symptoms or Concerns A comple te history and physical exam and review of systems was obtained in the clinic today and recorded on our electronic medical record. Please see my assessment and plan below.I had the pleasure of meeting Ms. Lorena Martinez, a 20-year-old woman with past medical history of ADHD and anxiety and depression who presents to GI Clinic with multiple complaints today.Her foremost concern is that of issues surrounding foods that she eats. She states that foods such as yogurt, fruit, and vegetables are tolerated very well by her but other foods such as grains or meat or seafood all cause her to have significant symptoms. She describes that simply seeing these foods cause her have almost a visceral response where she has what she describes as a spasm or closing off of her esophagus. When she attempts to eats these food she often times will feel them going down very slowly and she has to drink a liquid to get them to go down completely. These symptoms started several months a Functional Status Date Functional Assessmen t No Information Instructions Date Instruction Additional Infor curt Dec-12-2018 -Celiac panel, test for fecal fat - will see if SIBO testing is covered-Gastric Emptying Study-Ultrasound of the gallbladder-Continue dicyclomine, peppermint oil, CBD oil-Start Magensium 250-500mg daily for constipation -Follow up with one of our providers that specializes in motility disorders next Related to Gastroparesis Gastroparesis Folder Related to Gastroparesis 1. Upper endoscopy w ith biopsies.2. Trial of colon cleanse.3. I will contact Lorena after her upper endoscopy and if this is nondiagnostic and should she not have any improvement with the colon cleanse, we will refer her for food allergy testing.Thank you so much for involving me in the care of Ms. Martinez. Related to Bloat Assessments Type Assessment Date No Information Patient Care Teams Name Effective Dates (start - stop) Status Members No Information
--- OUTSIDE RECORDS SUMMARY | 2024-07-05 16:29 | XMS_ITS | Encounter Summary ---
Author Organization [facility] Address [address] [place] [address] Care Team Providers Care Payloader Machine Operator Name Role Phone Yoselin Francisco RD Unavailable eKhinde Kearns MD Unavailable [phone] [facility] Primary Care Provide r Encounter Details Date Type Department Care Team (Latest Contact Info) Description 06/28/2024 Travel Social History Tobacco Use Types Packs/Day Years Used Date Smoking Tobacco: Former Vaping Device Smokeless Tobacco: Never Comments:quit when found out Alcohol Use Standard Drinks/Week Comments No 0 (1 standard drink = 0.6 oz pur e alcohol) PHQ-2 Answer Date Recorded PHQ-2 Score 5 07/02/2023 [place] Depression Scale Answer Date Recorded [place] Depression Score 9 09/07/2020 Last EPDS Self Harm Result Not on file 09/07 Adolescent Education Answer Date Record ed Getting School Help Needed Not on file 06/29 Sex and Gender Information Value Date Recorded Sex Assigned at Not on file Gender Identity Not on file Sexual Orientation Not on file documented as of this encounter Plan of Treatment Not on file documented as of this encounter Visit Diagnoses Not on filedocumented in this encounter Additional Health Concerns Assessment Noted Time PHQ-9 Depression Total Score: 23 023 2:20 PM CDT documented as of this encounter Care Teams Payloader Machine Operator Relationship Specialty Start Date End Date [facility] [address] [facility] [address] [place] [address] PCP - General 06/28/[address] [place] [address] Wrapper Sorter Dietitian, Registered 07/29/20 Kehinde Kearns MD [address] [place] [address] [address] [place] [address] Family Medicine 06/20/23 Frances Simmons Therapist 06/18/23 Fidel Barton Therapist 06/28/24 Dajuan Dallas Psychiatrist 06/28/24 documented as of this encounter
== END 2024-07-05 17:22 | disposition home or self-care (01) ==
PROVIDERS: Emergency Provider Emergency Medicine Emergency Medical Services
DX: R42 Dizziness and giddiness (principal)
CPT/HCPCS: 81001; 81025; 99282; 99283; 99284; A9270